=== PATIENT | female | born 1955 | race Caucasian/White ===

== ENCOUNTER 2023-05-17 14:29 | Emergency (ER) | payer OTHER, SELFPAY ==
[2023-05-17 14:36] VITALS: BP 130/81
--- NOTE | 2023-05-17 15:47 | ED.MUSCINJ ---
HPI-Injury
General
Chief Complaint: Musculo-Skeletal Complaint
Source: patient
Exam Limitations: none
Time Seen by Provider: 05/17/23 15:14
Nursing documentation reviewed up to this point in time: agreed with
Travel History
Have you had any contact with someone who has COVID-19?: No
Do you have any symptoms of coronavirus? Fever > 100 degrees, chills, cough, shortness of breath, sore throat, loss of taste or smell, muscle aches, or headache?: No
History of Present Illness-Injury
Initial Injury comments:
67-year-old female with no clinically significant past medical history presents with pain in the right heel. She states she awakened 4 days ago, as she got out of bed the pain in her right heel was severe and she found it difficult to ambulate.
The pain has persisted, it is a mild to moderate aching pain at rest and much worse with weightbearing. 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 She has no recollection of overuse or injury.
Past History
Past History
ED Past Medical History: Psychiatric and Other (Irritable bowel syndrome, chronic back pain, diverticulosis)
ED Past Surgical History: Gynecological (Tubal ligation, bladder sling), Orthopedic (Lumbar laminectomy 2004; bone spur removal from feet) and Other (Multiple ear tubes; breast lift and tummy tuck 2009)
Social History
Tobacco: Former smoker
Alcohol: Occasional (rare)
Drug: None
Personal:
Living: with family
Employment: Employed
Family History
Family History: Cancer (Grandmother, ovarian cancer)
Review of Systems
Review of Systems
Allergies reviewed?: Yes
All Other Systems: ROS reviewed and negative except as documented in HPI and ROS
Musculoskeletal: Reports other (pain posterior L heel )
Skin: Reports no symptoms
Phy Exam
Physical Exam
Physical Exam:
PHYSICAL EXAMINATION:
General: no apparent distress, not acutely ill
Neuro: alert and oriented.
Psychiatric: well kept. interactive and cooperative
Musculoskeletal: Left foot is tender posterior heel at the base of the Achilles tendon. There is no swelling or discoloration here. Good Achilles tone. Full range of motion with pain with dorsiflexion of the foot. Distal
N?V intact.
Skin: Warm, pink.
Injury Course
Orders/Labs/Results
Orders:
Orders
05/17/23 14:38
Heel, Left 2 View [CR Heel/os Calcis - Left 2 Vw*] Urgent
Comment:
Reason For Exam: pain
05/17/23 15:51
Ortho Boot Right- Treatment ONCE
Short or tall?: Tall
MDM/Problems Addressed
Differential Diagnosis Includes:
Achilles tendinopathy, fracture, sprain
MDM/Problems Addressed:
67-year-old female with no clinically significant past medical history presents with pain in the right heel. She states she awakened 4 days ago, as she got out of bed the pain in her right heel was severe and she found it difficult to ambulate.
The pain has persisted, it is a mild to moderate aching pain at rest and much worse with weightbearing. 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 She has no recollection of overuse or injury.
05/17/2023 1550 PM
X-ray of right os calcis: No acute bony abnormality noted
Patient was given a walking boot with an inch of 4x4's padded heel.
Pt ambulated with stated less pain
Refer to both podiatry and orthopedics, however she can get into see first.
*Critical Care Note
Total Time (30-74mins, 75-104mins- exclusive of procedures): Not Applicable
ED Attending Note
-
Portions of this chart may have been created with voice recognition software.� Occasional wrong word or��sound alike� substitutions may have occurred due to the inherent limitations of voice recognition software.
Discharge Plan
Departure
Patient Disposition: Home (Routine Discharge)
Date of Disposition: 05/17/23
Time of Disposition: 15:54
Patient with high blood pressure during this ER visit?: No
Condition: Good
Discharge Problem:
Achilles tendinitis
Instructions: Achilles Tendinopathy (DC), Achilles Tendinopathy Exercises
Prescriptions:
No Action
cannabidiol [Epidiolex] 1 UNIT solution
4 - 5 puff inhalation HSPRN PRN (Reason: SLEEP)
Patient Comments:
06/12/20 - PT USES VAPE PEN AND FLOWER FROM [facility] [address] [place] [address] PHONE#[phone]
calcium carbonate [Oyster Shell Calcium 500] 500 MG tablet
500 mg PO DAILY
calcium polycarbophil [Fiber-Tabs] 625 MG tablet
625 mg PO DAILY
peg 400-propylene glycol (PF) [Systane (PF)] 1 EACH dropperette
2 drops BOTH EYES DAILYPRN PRN (Reason: DRY EYES)
multivitamin with folic acid [Tab-A-Megha] 1 TABLET tablet
1 tab PO DAILY
levofloxacin 500 MG tablet
500 mg PO DAILY Qty: 7 0RF
metronidazole 500 MG tablet
500 mg PO TID 7 Days Qty: 21 0RF
Referrals:
Cristian Varner MD [Active] - Next open appointment
Usha Klein DPM [Active] - Next open appointment
Daryl Stovall MD [Family Provider] -
Stand Alone Forms: Return to Work
Activity Restrictions/Additional Instructions:
As we discussed, Tylenol or ibuprofen as needed for pain.
Wear the orthopedic boot with a slight left in the heel until further instructed or the pain is resolved.
Call the operating system programmer and or the orthopedic doctor and make next billable appointment.
I provided you with exercises for the Achilles tendon that you should do in the meantime.
Interventions
Interventions:
*Risk Screen - Suicide Last Done: 05/17/23 14:34
*General Assessment Last Done: 05/17/23 14:34
*Neglect/Abuse Screening Last Done: 05/17/23 14:34
*ED COVID-19 Vaccine History Last Done: 05/17/23 14:56
*Nursing Disposition Last Done: 05/17/23 16:07
ED-Musculoskeletal Assessment Last Done: 05/17/23 14:56
Discharge Date and Time
Discharge Date/Time: 05/17/23 16:07
[2023-05-17 16:06] VITALS: BP 144/85
[2023-05-17 16:07] VITALS: BP 144/85
== END 2023-05-17 16:07 | disposition home or self-care (01) ==
LOC: EMR 14:29
PROVIDERS: EMERGENCY PHYSICIAN Emergency Medicine; FAMILY PHYSICIAN Internal Medicine
DX: M76.62 Achilles tendinitis, left leg (principal); Z87.891 Personal history of nicotine dependence
CPT/HCPCS: 99283; 73650

== ENCOUNTER → 2024-05-03 12:39 | Outpatient (REF) | payer OTHER, SELFPAY ==
[2024-05-03 14:10] LABS: % Basophils 0.3 % (0-2); % Eosinophils 1.3 % (0-6); % Immature Granulocytes 0.4 % (0-0.5); % Monocytes 6.8 % (1.7-9.3); % Neutrophils 59.2 % (42.2-75.2); Absolute Eosinophils 0.2 10^3/uL (0-0.7); Absolute Immature Granulocytes 0.1 10^3/uL (0-0.05); Absolute Lymphocytes 4.1 10^3/uL (1.2-3.4); Absolute Monocytes 0.9 10^3/uL (0.1-0.6); Absolute Neutrophils 7.5 10^3/uL (1.4-6.5); Hematocrit 45.7 % (37.0-47.0); Hemoglobin 14.7 g/dL (12.0-16.0); Mean Corp Hgb Conc. 32.2 g/dL (33.0-37.0); Mean Corpuscular Hgb 30.5 pg (27.0-31.0); Mean Corpuscular Volume 94.8 fL (81.0-99.0); Mean Platelet Volume 10.7 fL (7.4-10.4); Nucleated Red Blood Cells % 0 %; Platelet Count 242 10^3/uL (130-400); Red Blood Cell Count 4.82 10^6/uL (4.20-5.40); Red Cell Dist. Width 13.5 % (11.5-14.5); White Blood Cell Count 12.7 10^3/uL (4.8-10.8)
[2024-05-03 14:39] LABS: ALT (SGPT) 24 U/L (0-35); AST (SGOT) 24 U/L (14-36); Albumin 5.1 g/dl (3.5-5.0); Alkaline Phosphatase 85 U/L (38-126); Blood Urea Nitrogen 20 mg/dl (7-17); Calcium 9.8 mg/dl (8.4-10.2); Carbon Dioxide 28 mmol/L (22-30); Chloride 102 mmol/L (98-107); Glucose 81 mg/dl (70-99); HDL Cholesterol 80 mg/dl; LDL Cholesterol, Calculated 169 mg/dl; Potassium 4.1 mmol/L (3.5-5.1); Sodium 139 mmol/L (135-145); Total Bilirubin 0.9 mg/dl (0.2-1.3); Total Cholesterol 305 mg/dl (50-199); Triglyceride 280 mg/dl (10-149); Very Low Density Lipoprotein 56 mg/dl (0-30); eGFR > 60.00
[2024-05-03 15:49] LABS: TSH 2.73 uIU/ml (0.47-4.68)
== END ==
LOC: REG 12:39
PROVIDERS: ATTENDING PHYSICIAN Internal Medicine
DX: Z00.00 Encounter for general adult medical examination without abnormal findings (principal); E78.5 Hyperlipidemia, unspecified
CPT/HCPCS: 36415; 80053; 80061; 84443; 85025

== ENCOUNTER → 2024-09-19 11:47 | Outpatient (REF) | payer OTHER, SELFPAY ==
[2024-09-19 17:27] LABS: Urine Character Clear (Clear)
== END ==
LOC: CLAB 11:47
PROVIDERS: ATTENDING PHYSICIAN Physician Assistant
DX: N39.0 Urinary tract infection, site not specified (principal)
CPT/HCPCS: 81003; 87086

== ENCOUNTER 2024-10-06 12:46 | Emergency (ER) | payer OTHER, SELFPAY ==
[2024-10-06 12:49] VITALS: BP 157/81
[2024-10-06 13:09] LABS: Hematocrit 44.4 % (37.0-47.0); Hemoglobin 14.7 g/dL (12.0-16.0); Mean Corp Hgb Conc. 33.1 g/dL (33.0-37.0); Mean Corpuscular Volume 93.9 fL (81.0-99.0); Nucleated Red Blood Cells % 0 %; Platelet Count 247 10^3/uL (130-400); Red Cell Dist. Width 13.2 % (11.5-14.5)
[2024-10-06 13:22] LABS: ALT (SGPT) 23 U/L (0-35); AST (SGOT) 23 U/L (14-36); Albumin 4.8 g/dl (3.5-5.0); Alkaline Phosphatase 93 U/L (38-126); Blood Urea Nitrogen 15 mg/dl (7-17); Calcium 9.8 mg/dl (8.4-10.2); Carbon Dioxide 27 mmol/L (22-30); Chloride 106 mmol/L (98-107); Glucose 121 mg/dl (70-99); Lipase 64 U/L (23-300); Potassium 4.3 mmol/L (3.5-5.1); Sodium 140 mmol/L (135-145); Total Protein 7.8 g/dl (6.3-8.2); eGFR > 60.00
--- NOTE | 2024-10-06 15:18 | EDRN ---
Pt arrives for pain across lower abd that started 3:00 am, was 10+/10 and now 5-6/10. Pt states she awoke w/ pain and went into BR and sat and sat then started to vomit and cold sweat and bowels movement (only some). Pain from BM stayed post BM
uintil here. Pt now when has BM still has pain and had mucous in BM yellowish in color. Pt went alot of times. Stool described as watery. Pt still has nausea but has not vomited since initial time w/ last bout 5:00 am.
[2024-10-06 15:22] VITALS: BMI 28.8
[2024-10-06 15:25] VITALS: BP 105/62
--- NOTE | 2024-10-06 15:32 | ED.GENMED ---
History of Present Illness
General
Chief Complaint: Abdominal Pain
Source: patient
Exam Limitations: none
Time Seen by Provider: 10/06/24 15:29
Nursing documentation reviewed up to this point in time: agreed with
History of Present Illness
History of Present Illness:
The patient is a pleasant 68-year-old female who reports waking up at 3 AM with lower abdominal pain that has been constant all day. The pain is associated with mucousy diarrhea, nausea and vomiting. Patient denies sick contacts. She denies
recent travel history. She denies fever. She reports she has never had this before. She reports that after some time she noticed some bright red streaks of blood, however, she does reports she has an external hemorrhoid that she believes is
currently bleeding. She reports that her past colonoscopies have been fairly normal but showed diverticulosis.
Past History
Past History
ED Past Medical History: Psychiatric and Other (Irritable bowel syndrome, chronic back pain, diverticulosis)
ED Past Surgical History: Gynecological (Tubal ligation, bladder sling), Orthopedic (Lumbar laminectomy 2004; bone spur removal from feet) and Other (Multiple ear tubes; breast lift and tummy tuck 2009)
Social History
Tobacco: Former smoker
Alcohol: Occasional (rare)
Drug: None
Personal:
Living: with family
Employment: Employed
Family History
Family History: Cancer (Grandmother, ovarian cancer)
Review of Systems
Review of Systems
Allergies reviewed?: Yes
All Other Systems: ROS reviewed and negative except as documented in HPI and ROS
Constitutional: Reports no symptoms
EENT: Reports no symptoms
Respiratory: Reports no symptoms
Cardiac: Reports no symptoms
ABD/GI: Reports abdominal pain, nausea, vomiting, diarrhea and anorexia
: Reports no symptoms
Musculoskeletal: Reports no symptoms
Skin: Reports no symptoms
Neurological: Reports no symptoms
Endocrine: Reports no symptoms
Hematologic/Lymphatic: Reports no symptoms
Psychiatric: Reports no symptoms
Phy Exam
Physical Exam
Physical Exam:
Physical Exam
General: Nontoxic, however, patient appears slightly flushed
Neck: supple. no meningeal signs. normal psoterior pharynx
Heart: s1/s2 regular rate and rhythm, no murmur. equal radial pulses.
Lungs: no acute respiratory distress. clear bilaterally
Abdomen: Normal bowel sounds. Mid lower abdominal tenderness. No rebound or guarding. No pulsatile mass
Neuro: alert and oriented. no focal neurological deficits
Skin: no rash
Psychiatric: well kept. interactive and cooperative
Extremities: no edema. no calf tenderness. negative homans. good distal pulses
Course
Orders/Labs/Results
Orders:
Orders
10/06/24 12:58
Complete Blood Count/With Diff Urgent
Comprehensive Metabolic Panel Urgent
Lactic Acid Urgent
Lipase Urgent
10/06/24 15:38
CT Abd/pelvis W Iv Cont Urgent
Comment:
Reason For Exam: lower abdominal pain
Ketorolac [Toradol] 30 mg IV NOW STA
10/06/24 15:39
0.9% Sodium Chloride 1000 ml [Nss] 1,000 ml IV BOLUS
10/06/24 15:58
Lactic Acid Urgent
10/06/24 18:04
Ciprofloxacin HCl [Cipro] 500 mg PO NOW STA
10/06/24 18:05
MetroNIDAZOLE [Flagyl] 500 mg PO NOW STA
Abnormal Lab Results
10/06/24
12:58
WBC 13.5 H 10^3/uL
(4.8-10.8)
MCH 31.1 H pg
(27.0-31.0)
Absolute Neuts (auto) 11.0 H 10^3/uL
(1.4-6.5)
Neutrophils % 82.0 H %
(42.2-75.2)
Lymphocytes % 12.9 L %
(20.5-51.1)
Creatinine 0.5 L mg/dL
(0.6-1.0)
Glucose 121 H mg/dl
(70-99)
10/06/24 12:58
10/06/24 12:58
Vital Signs
Initial and Last Documented VS:
Initial Vital Signs
Temp Pulse Resp BP Pulse Ox
98.9 F 91 20 157/81 98
10/06/24 12:49 10/06/24 12:49 10/06/24 12:49 10/06/24 12:49 10/06/24 12:49
Last Documented Vital Signs
Temp Pulse Resp BP Pulse Ox
98.9 F 72 16 125/55 98
10/06/24 12:49 10/06/24 17:00 10/06/24 17:00 10/06/24 17:00 10/06/24 17:00
MDM/Problems Addressed
Differential Diagnosis Includes:
Acute gastroenteritis, acute diverticulitis, acute colitis
MDM/Problems Addressed:
Patient presents with acute lower abdominal pain, nausea, vomiting and diarrhea
Chronic conditions affecting care:
Irritable bowel syndrome
Acute Exacerbation and/or Progression of Chronic Illness:
Patient may have acute exacerbation of irritable bowel syndrome
*Radiology
Radiology exam reviewed: radiology read reviewed
*Pulse Oximetry
SaO2: 97
Oxygen Mode of Delivery: Room air
Patient hypoxic: no
Comment: Patient is not hypoxic. She is 97% on room air
*EKG
Interpreted by ED Provider?: NA
*Electronic Scanner Operator Interpretation
Rate: normal
Interpretation: normal
Rhythm: sinus
*Critical Care Note
Total Time (30-74mins, 75-104mins- exclusive of procedures): Not Applicable
Data Reviewed
Review of Other/Old Records Reveals: Discharge Summary (Discharge summary reviewed from hospitalist from 06/16/2020 when patient was admitted for acute infectious colitis)
Update Note
Update Note:
Patient remains nontoxic-appearing. CT shows uncomplicated acute diverticulitis. Will treat with oral antibiotics. Patient will return with any fever. Patient infected follow-up with her GI doctor within 1 to 2 weeks.
ED Attending Note
-
Portions of this chart may have been created with voice recognition software.� Occasional wrong word or��sound alike� substitutions may have occurred due to the inherent limitations of voice recognition software.
Discharge Plan
Departure
Patient Disposition: Home (Routine Discharge)
Date of Disposition: 10/06/24
Time of Disposition: 18:05
Patient with high blood pressure during this ER visit?: Yes
Condition: Good
Covid-19: Not Applicable
Discharge Problem:
Acute diverticulitis
Instructions: Diverticulitis - Discharge instructions, BLOOD PRESSURE
Prescriptions:
New
ciprofloxacin HCl [Cipro] 500 mg tablet
500 mg PO BID Qty: 19 0RF
metronidazole 500 mg tablet
500 mg PO TID Qty: 29 0RF
No Action
cannabidiol [Epidiolex] 1 UNIT solution
4 - 5 puff inhalation HSPRN PRN (Reason: SLEEP)
Patient Comments:
06/12/20 - PT USES VAPE PEN AND FLOWER FROM [facility] [address] [place] [address] PHONE#[phone]
calcium carbonate [Oyster Shell Calcium 500] 500 MG tablet
500 mg PO DAILY
calcium polycarbophil [Fiber-Tabs] 625 MG tablet
625 mg PO DAILY
peg 400-propylene glycol (PF) [Systane (PF)] 1 EACH dropperette
2 drops BOTH EYES DAILYPRN PRN (Reason: DRY EYES)
multivitamin with folic acid [Tab-A-Megha] 1 TABLET tablet
1 tab PO DAILY
levofloxacin 500 MG tablet
500 mg PO DAILY Qty: 7 0RF
metronidazole 500 MG tablet
500 mg PO TID 7 Days Qty: 21 0RF
Referrals:
Severino Handy MD [Family Provider, Internal Medicine]
Activity Restrictions/Additional Instructions:
Take 600 mg every 6-8 hours for pain. Please call your configuration release manager for follow-up to see within 2 weeks
Interventions
Interventions:
*Risk Screen - Suicide Last Done: 10/06/24 15:22
*General Assessment Last Done: 10/06/24 15:22
*Neglect/Abuse Screening Last Done: 10/06/24 15:22
*ED- Fall Risk Assessment Last Done: 10/06/24 15:22
*ED COVID-19 Vaccine History Last Done: 10/06/24 15:22
WB-Auhcxo-Earihreypy Assessment Last Done: 10/06/24 15:33
Discharge Date and Time
Print Language: NIGERIAN
[2024-10-06 16:00] VITALS: BP 118/73
[2024-10-06] MEDS: NSS 1000 IV (16:04)
[2024-10-06] MEDS: TORADOL 30 MG IV (16:05)
[2024-10-06 17:00] VITALS: BP 125/55
[2024-10-06 18:00] VITALS: BP 127/61
--- NOTE | 2024-10-06 18:02 | EDRN ---
Dr. Sutton in room w/ pt at this time.
[2024-10-06] MEDS: CIPRO 500 MG PO (18:25)
[2024-10-06] MEDS: FLAGYL 500 MG PO (18:25)
== END 2024-10-06 18:34 | disposition home or self-care (01) ==
LOC: EMR 12:46
PROVIDERS: Emergency Medicine; EMERGENCY PHYSICIAN Emergency Medicine; FAMILY PHYSICIAN Internal Medicine
DX: K57.32 Diverticulitis of large intestine without perforation or abscess without bleeding (principal); K58.9 Irritable bowel syndrome, unspecified; Z87.891 Personal history of nicotine dependence
CPT/HCPCS: 99285; 96374; 96361 ×2; 74177; 80053; 83605; 83690; 85025; Q9967

== ENCOUNTER 2024-10-08 19:59 | Emergency (ER) | payer OTHER, SELFPAY ==
[2024-10-08 20:02] VITALS: BP 132/89
[2024-10-08 21:24] VITALS: BMI 29.4
--- NOTE | 2024-10-08 21:33 | ED.GENMED ---
History of Present Illness
General
Chief Complaint: Allergic Reaction
Source: patient
Exam Limitations: none
Time Seen by Provider: 10/08/24 21:32
Nursing documentation reviewed up to this point in time: agreed with
History of Present Illness
History of Present Illness:
Note:
CHIEF COMPLAINT(S)
Generalized itchy skin rash following antibiotic use.
HISTORY OF PRESENT ILLNESS
The patient is a 68-year-old female with a pmh of diverticulosis, IBS, depression, who presents with a generalized skin rash that began a few days ago. She reports the rash initially started on the hands and has since spread to cover her entire
body. She describes intense pruritus, stating, 'I just want to rip my skin off.' The symptoms significantly worsened after taking a dose of antibiotics, occurring within half an hour of administration, with notable exacerbation last night. With
each subsequent dose, her symptoms get worse. She is on Cipro and Flagyl for diverticulitis. The patient denies any prior history of allergic reactions. She was previously diagnosed with diverticulitis in the Emergency Room and was prescribed
antibiotics, which she suspects may have triggered this reaction. There is no history of respiratory compromise, lip swelling, or other concerning symptoms. Her abdominal pain related to diverticulitis is reported as well controlled currently. She
denies any fevers or chills. Denies any trouble swallowing. She denies any rectal bleeding or diarrhea.
EXTERNAL RECORDS REVIEWED
The patient was previously seen in the Emergency Room and diagnosed with diverticulitis.
REVIEW OF SYSTEMS
- Skin: Diffuse rash with intense itching
- Respiratory: No difficulty breathing or swelling of the lips
- Gastrointestinal: Mild abdominal soreness due to diverticulitis
PHYSICAL EXAM
Nursing notes reviewed and vital signs reviewed.
General: Patient is well appearing and in no acute distress; non-toxic
Skin: Warm and dry, urticaria noted to the lower extremities and across the abdomen
Head: Normocephalic, atraumatic
Eyes: Sclera non-icteric. EOMs intact.
Mouth: No tongue or lip swelling. No uvular edema. No pharyngeal erythema.
Cardiac: Regular rate and rhythm, no murmurs
Peripheral Vascular: No lower extremity swelling or edema
Pulm: Normal respiratory effort, no wheezes, rales, rhonchi
Abdomen: No abdominal tenderness to palpation
Neuro: CN II-XII intact, no focal neurologic deficits.
Psychiatric: Appropriate mood and affect.
PROBLEM LIST
Acute:
- Allergic reaction likely secondary to antibiotics
- Diverticulitis
PLAN
- Discontinue the current antibiotics suspected of causing the allergic reaction.
- Start alternative antibiotic therapy for diverticulitis, considering either Augmentin or another suitable alternative.
- Administer antihistamines, including Benadryl.
- Administer steroids both intravenously and as a taper to decrease the immune response.
- Monitor the patients response to treatment, with considerations for prescribing medications orally versus intravenously based on symptom severity and patient response.
- Plan for possible discharge with prednisone
DIFFERENTIAL DIAGNOSIS
The Differential Diagnosis includes, in no particular order and is not limited to:
1. Drug-induced urticaria
2. Contact dermatitis
3. Idiopathic urticaria
4. Viral exanthem
5. Bullous pemphigoid
6. Erythema multiforme
7. Anaphylactoid reaction
8. Ulrich-Viktor Syndrome (unlikely given lack of systemic symptoms)
9. Serum sickness-like reaction
10. Acute urticaria due to other triggers
CHART REVIEW
Reviewed ER physician documentation from 10/06/2024 patient seen for constant abdominal pain associated with mucousy diarrhea as she is diagnosed with mild diverticulitis
Reviewed discharge summary from 06/16/2020 patient seen for infectious colitis and chronic back pain
MDM/disposition
The patient is a 68-year-old female with a pmh of diverticulosis, IBS, depression, who presents with a generalized skin rash that began a few days ago. She reports the rash initially started on the hands and has since spread to cover a large portion
of her body. She reports that with each subsequent dose of antibiotic, her symptoms get acutely worse. She has never had any trouble breathing, has never had any tongue or lip involvement. Never had any trouble swallowing. Physical exam she has
diffuse urticaria. Suspect allergic reaction secondary to antibiotics. Will switch antibiotic therapy to Augmentin. Patient was given antihistamines intravenously in the ER which improved her symptoms. Patient will be started on prednisone.
Discussed follow-up with PCP and GI. Patient stable for discharge. Discussed return precautions.
Past History
Past History
ED Past Medical History: Psychiatric and Other (Irritable bowel syndrome, chronic back pain, diverticulosis)
ED Past Surgical History: Gynecological (Tubal ligation, bladder sling), Orthopedic (Lumbar laminectomy 2004; bone spur removal from feet) and Other (Multiple ear tubes; breast lift and tummy tuck 2009)
Social History
Tobacco: Former smoker
Alcohol: Occasional (rare)
Drug: None
Personal:
Living: with family
Employment: Employed
Family History
Family History: Cancer (Grandmother, ovarian cancer)
Review of Systems
Review of Systems
All Other Systems: ROS reviewed and negative except as documented in HPI and ROS
Phy Exam
Physical Exam
Physical Exam:
see hpi
Course
Orders/Labs/Results
Orders:
Orders
10/08/24 21:45
0.9% Sodium Chloride 500 ml [Nss] 500 ml IV BOLUS
Diphenhydramine [Benadryl] 25 mg IV NOW STA
Famotidine [Pepcid] 20 mg IV NOW STA
Prednisone [Deltasone] 50 mg PO NOW STA
Vital Signs
Initial and Last Documented VS:
Initial Vital Signs
Temp Pulse Resp BP Pulse Ox
98.6 F 94 16 132/89 97
10/08/24 20:02 10/08/24 20:02 10/08/24 20:02 10/08/24 20:02 10/08/24 20:02
Last Documented Vital Signs
Temp Pulse Resp BP Pulse Ox
98.6 F 94 16 132/89 97
10/08/24 20:02 10/08/24 20:02 10/08/24 20:02 10/08/24 20:02 10/08/24 21:34
*Pulse Oximetry
SaO2: 97
Oxygen Mode of Delivery: Room air
Patient hypoxic: no
*Critical Care Note
Total Time (30-74mins, 75-104mins- exclusive of procedures): Not Applicable
ED Attending Note
-
Portions of this chart may have been created with voice recognition software.� Occasional wrong word or��sound alike� substitutions may have occurred due to the inherent limitations of voice recognition software.
Discharge Plan
Departure
Patient Disposition: Home (Routine Discharge)
Date of Disposition: 10/08/24
Time of Disposition: 23:35
Patient with high blood pressure during this ER visit?: Yes
Condition: Good
Discharge Problem:
Allergic reaction
Instructions: Adverse Drug Reactions, Adult (DC), BLOOD PRESSURE
Prescriptions:
New
amoxicillin-pot clavulanate 875-125 mg tablet
1 tab PO BID 7 Days Qty: 14 0RF
prednisone 20 mg tablet
40 mg PO DAILY 5 Days Qty: 10 0RF
No Action
cannabidiol [Epidiolex] 1 UNIT solution
4 - 5 puff inhalation HSPRN PRN (Reason: SLEEP)
Patient Comments:
06/12/20 - PT USES VAPE PEN AND FLOWER FROM [facility] [address], [place] [address] PHONE#[phone]
calcium carbonate [Oyster Shell Calcium 500] 500 MG tablet
500 mg PO DAILY
calcium polycarbophil [Fiber-Tabs] 625 MG tablet
625 mg PO DAILY
peg 400-propylene glycol (PF) [Systane (PF)] 1 EACH dropperette
2 drops BOTH EYES DAILYPRN PRN (Reason: DRY EYES)
multivitamin with folic acid [Tab-A-Megha] 1 TABLET tablet
1 tab PO DAILY
levofloxacin 500 MG tablet
500 mg PO DAILY Qty: 7 0RF
metronidazole 500 MG tablet
500 mg PO TID 7 Days Qty: 21 0RF
ciprofloxacin HCl [Cipro] 500 mg tablet
500 mg PO BID Qty: 19 0RF
metronidazole 500 mg tablet
500 mg PO TID Qty: 29 0RF
Referrals:
UNKNOWN - PT DOES,NOT KNOW [Family Provider]
Activity Restrictions/Additional Instructions:
Augmentin has been sent to her pharmacy. Please take 1 tablet twice daily for 7 days. Please stop taking Flagyl and Cipro.
Please follow-up with your primary care provider, please follow-up with gastroenterology.
You can take Benadryl as needed for itching. Recommend using aloe vera cream or gel as well. Please start short prednisone burst. Please take starting tomorrow, 40 mg of prednisone once daily for 5 days.
PLEASE RETURN TO THE DEPARTMENT SHOULD YOU DEVELOP TONGUE OR LIP SWELLING, DIFFICULTY SWALLOWING, DIFFICULTY BREATHING, CHEST PAIN, WHEEZING, SHORTNESS OF BREATH, ACUTE SPREADING OF YOUR RASH, OR ANY OTHER SIGNS OR SYMPTOMS WORRISOME TO YOU.
Interventions
Interventions:
*Risk Screen - Suicide Last Done: 10/08/24 20:04
*General Assessment Last Done: 10/08/24 21:24
*Neglect/Abuse Screening Last Done: 10/08/24 20:04
*ED- Fall Risk Assessment Last Done: 10/08/24 21:24
*ED COVID-19 Vaccine History Last Done: 10/08/24 21:24
*Nursing Disposition Last Done: 10/09/24 00:13
ED- Cardiac Assessment Last Done: 10/08/24 21:24
ED- Pulmonary Assessment Last Done: 10/08/24 21:24
ED-Skin Assessment Last Done: 10/08/24 21:24
Discharge Date and Time
Discharge Date/Time: 10/09/24 00:15
Print Language: SAMI
[2024-10-08] MEDS: NSS 500 IV (22:00)
[2024-10-08] MEDS: DELTASONE 50 MG PO (22:01)
[2024-10-08] MEDS: BENADRYL 25 MG IV (22:01)
[2024-10-08] MEDS: PEPCID 20 MG IV (22:01)
== END 2024-10-09 00:15 | disposition home or self-care (01) ==
LOC: EMR 19:59
PROVIDERS: EMERGENCY PHYSICIAN Emergency Medicine
DX: L27.0 Generalized skin eruption due to drugs and medicaments taken internally (principal); T36.95XA Adverse effect of unspecified systemic antibiotic, initial encounter; L29.9 Pruritus, unspecified; R10.9 Unspecified abdominal pain; R03.0 Elevated blood-pressure reading, without diagnosis of hypertension; K57.90 Diverticulosis of intestine, part unspecified, without perforation or abscess without bleeding; K58.9 Irritable bowel syndrome, unspecified; F32.A Depression, unspecified; G89.29 Other chronic pain; M54.9 Dorsalgia, unspecified; E78.00 Pure hypercholesterolemia, unspecified; Z87.891 Personal history of nicotine dependence
CPT/HCPCS: 99284; 96374; 96375; 96361